=== PATIENT | male | born 1975 | race Caucasian/White ===

== ENCOUNTER 2019-08-12 07:10 | Day surgery (SDC) | payer BC ==
[2019-08-12] MEDS ORDERED: Propofol 200 MG/20 ML SDV IV ONE (07:11)
[2019-08-12] MEDS ORDERED: Lidocaine 1% PF 2 ML SDV INJECT ONE (07:11)
[2019-08-12] MEDS ORDERED: Lactated Ringers 1,000 ML IV SCH (07:15)
[2019-08-12] MEDS ORDERED: Sodium Chloride 0.9% 10 ML Syringe FLUSH PRN (07:15)
--- NOTE | 2019-08-12 09:12 | PCM.OPNOTE ---
- General Post-Op/Procedure Note Date of Surgery/Procedure: 08/12/19 Operative Procedure(s): c scope with loop snare biopsy Findings: sigmoid colon polyp Pre Op Diagnosis: blood per rectum. family hx of colon cancer Post-Op Diagnosis: sigmoid colon polyp [place] [facility] [place] Surgeon: Paramjit Veliz Anesthesia Provider: Waylon Conteh Pathology: colon polyp Complications: None Condition: Good Free Text/Narrative:: see dictation
--- NOTE | 2019-08-12 15:01 | OR ---
DATE OF OPERATION: 08/12/2019 SURGEON: Paramjit Veliz MD PROCEDURE PERFORMED: Colonoscopy with hot loop snare biopsy. PREOPERATIVE DIAGNOSIS: Family history of colon cancer, history of bleeding per rectum. POSTOPERATIVE DIAGNOSIS: Sigmoid colon polyp. INDICATIONS FOR PROCEDURE: This is a 44-year-old white male who presents with the above-mentioned history. He was offered and accepted a colonoscopy. DESCRIPTION OF OPERATION: After an excellent IV sedation was administered, digital rectal exam was performed. No marked abnormality was noted. Flexible colonoscope was inserted and advanced to the cecum. Prep was excellent. Following findings were noted. Ascending colon, unremarkable. Transverse colon, unremarkable. Descending colon, unremarkable. Sigmoid, pedunculated polyp, biopsied with hot loop snare with a nice stalk retrieved via the [place] and submitted for permanent. Rectum and anus, unremarkable. The patient tolerated the procedure well. Results will be sent to the patient by letter. /[id number] /MODL
== END 2019-08-12 09:57 | disposition home or self-care (01) ==
LOC: FB.SDS 07:10 → EDBD 08:45 → FB.SDS 09:57
PROVIDERS: ATTEND Surgery
DX: K63.5 Polyp of colon (principal); K63.3 Ulcer of intestine; K62.5 Hemorrhage of anus and rectum; E66.9 Obesity, unspecified; Z68.31 Body mass index [BMI] 31.0-31.9, adult; Z80.0 Family history of malignant neoplasm of digestive organs
CPT/HCPCS: 45385; 88305; J2001; J2704; J7120